=== PATIENT | male | born 1955 | race Two or more races ===

== ENCOUNTER 2016-10-18 21:06 | Emergency (ER) | payer BC ==
[~2016-10-18] VITALS: Ht 165.1 cm; Wt 75.7 kg
[2016-10-18] MEDS ORDERED: PERCOCET 2.51 TABLET PO (23:45)
[2016-10-18 23:55] LABS: HEMATOCRIT 39.6 % (38.0-50.0); MCH 32.9 PG (29.0-34.0); MCHC 35.9 G/DL (30.0-36.0); MCV 91.7 FL (86-99); MEAN PLAT.VOLUME 10.1 uM^3 (9.0-12.4); PLATELET COUNT 122 K/uL (156-360); RBC DIS.WIDTH-CV 13.2 % (11.8-14.6); RBC DIS.WIDTH-SD 44.9 % (39-53); RED BLOOD COUNT 4.32 M/uL (4.00-5.50); WHITE BLOOD COUNT 8.1 K/uL (4.1-10.2)
[2016-10-19 00:09] LABS: CHLORIDE 104 mEq/L (99-109); POTASSIUM 3.5 mEq/L (3.7-5.4); SODIUM 136 mEq/L (136-147)
[2016-10-19 00:10] LABS: GLUCOSE 131 mg/dL (70-99)
[2016-10-19 00:12] LABS: ANION GAP 10 MEQ/L (2-14)
[2016-10-19 00:14] LABS: GFR ESTIMATE (CALCULATED) > 59 mL/min/
[2016-10-19 00:15] LABS: UREA NITROGEN (BUN) 15 mg/dL (9-23)
[2016-10-19 00:26] VITALS: BP 107/72
[2016-10-21] MEDS ORDERED: PERCOCET 5/31 TABLET PO (09:16)
[2016-10-21] MEDS ORDERED: NIASPAN,SLO-N1000 MG PO (09:19)
[2016-10-21] MEDS ORDERED: LO-DOSE ASPIRIN81 M2 PO (09:21)
[2016-10-21] MEDS ORDERED: CRESTOR40 MG PO (09:22)
[2016-10-21] MEDS ORDERED: ZESTRIL5 MG PO (09:22)
[2016-10-21] MEDS ORDERED: LOPRESSOR25 MG PO (09:23)
== END 2016-10-19 00:28 | disposition home or self-care (01) ==
LOC: EME 21:06
PROVIDERS: Emergency Medicine
DX: S52.611A Displaced fracture of right ulna styloid process, initial encounter for closed fracture (principal); S52.501A Unspecified fracture of the lower end of right radius, initial encounter for closed fracture; W18.30XA Fall on same level, unspecified, initial encounter; Y93.51 Activity, roller skating (inline) and skateboarding; Y92.838 Other recreation area as the place of occurrence of the external cause; I25.2 Old myocardial infarction; Z95.5 Presence of coronary angioplasty implant and graft
CPT/HCPCS: 73090; 73100; 73110; 73120; 80048; 85027; 86850; 86900; 86901; 93005; 99281; 99285; J2270; J2405; J3010

== ENCOUNTER 2016-10-21 14:24 | Day surgery (SDC) | payer BC ==
[~2016-10-21] VITALS: Ht 167.6 cm; Wt 74.4 kg
[~2016-10-21 14:24] MED LIST: CRESTOR40 MG PO; LO-DOSE ASPIRIN81 M2 PO; LOPRESSOR25 MG PO; NIASPAN,SLO-N1000 MG PO; PERCOCET 2.51 TABLET PO; PERCOCET 5/31 TABLET PO; ZESTRIL5 MG PO
[2016-10-21 14:59] VITALS: BP 119/67
[2016-10-21 19:43] VITALS: BP 112/63
[2016-10-21 20:27] VITALS: BP 108/53
== END 2016-10-21 20:43 | disposition home or self-care (01) ==
LOC: SDC 14:24
PROC: 0PSH04Z Reposition Right Radius with Internal Fixation Device, Open Approach (ICD-10-PCS; principal; 2016-10-21)
DX: S52.571A Other intraarticular fracture of lower end of right radius, initial encounter for closed fracture (principal); I10 Essential (primary) hypertension; I25.10 Atherosclerotic heart disease of native coronary artery without angina pectoris; Z95.5 Presence of coronary angioplasty implant and graft; I25.2 Old myocardial infarction; E78.5 Hyperlipidemia, unspecified; Z79.01 Long term (current) use of anticoagulants; Z82.49 Family history of ischemic heart disease and other diseases of the circulatory system; Z83.3 Family history of diabetes mellitus; Y93.51 Activity, roller skating (inline) and skateboarding; Z79.82 Long term (current) use of aspirin
CPT/HCPCS: 73100; 76000; C1713; C1769; J0131; J0690; J1100; J1170; J1885; J2250; J2405; J3010

== ENCOUNTER 2016-11-09 13:16 | Emergency (ER) | payer BC ==
[~2016-11-09] VITALS: Ht 165.1 cm; Wt 72.1 kg
[2016-11-09 16:46] VITALS: BP 118/76
== END 2016-11-09 16:46 | disposition home or self-care (01) ==
LOC: EME 13:16
DX: M79.89 Other specified soft tissue disorders (principal); S52.501D Unspecified fracture of the lower end of right radius, subsequent encounter for closed fracture with routine healing; Z47.89 Encounter for other orthopedic aftercare; I25.2 Old myocardial infarction; Z95.5 Presence of coronary angioplasty implant and graft
CPT/HCPCS: 73110; 99281; 99283

== ENCOUNTER 2016-11-15 14:21 | Emergency (ER) | payer BC ==
[~2016-11-15] VITALS: Ht 165.1 cm; Wt 72.2 kg
[2016-11-15] MEDS ORDERED: ATARAX,VISTARIL25 MG PO (16:28)
[2016-11-15 16:51] VITALS: BP 110/77
== END 2016-11-15 16:52 | disposition home or self-care (01) ==
LOC: EME 14:21
DX: G89.18 Other acute postprocedural pain (principal); F41.9 Anxiety disorder, unspecified; I10 Essential (primary) hypertension; I25.2 Old myocardial infarction; Z79.82 Long term (current) use of aspirin
CPT/HCPCS: 99281; 99284; Q0177